=== PATIENT | female | born 1980 | race Caucasian/White ===

== ENCOUNTER 2016-05-29 18:50 | Emergency (ER) | payer BC ==
[~2016-05-29] VITALS: Ht 162.6 cm; Wt 72.6 kg
[2016-05-29 19:04] VITALS: BP 147/104
--- NOTE | 2016-05-29 20:57 | NUR ---
PATIENT AMBULATED TO BED 1.
--- NOTE | 2016-05-29 20:58 | NUR ---
36Y F BIB FAMILY, SISTER AT BEDSIDE C/O L EYE PAIN X 1 WEEK, NO SWELLING OR DISCHARGE AT THE MOMENT. PT STATES THIS HAPPENED BEFORE IN THE SUMMER AND WAS DX AT [place] AN ULCER IN THE L EYE .PT DENIES N/V/D; SKIN IS PINK/WARM/DRY; AAOX4 WITH EVEN AND STEADY GAIT; LUNGS CLEAR BL; HR EVEN AND REGULAR; PT DENIES ANY FEVER, CP, SOB, OR COUGH AT THIS TIME; PATIENT STATES PAIN OF 10/10 AT THIS TIME; VSS; PATIENT POSITIONED FOR COMFORT; HOB ELEVATED; BEDRAILS UP X2; BED DOWN. ER MD MADE AWARE OF PT STATUS.
--- NOTE | 2016-05-29 22:24 | NUR ---
Patient being evaluated by physician DR QUINTANILLA at bedside.
[2016-05-29] MEDS ORDERED: KETOROLAC 60 MG/2 ML VIAL IM ONE (22:30)
[2016-05-29] MEDS ORDERED: FLUORESCEIN OPTH STRIP 1 MG OP ONE (22:30)
--- NOTE | 2016-05-29 22:57 | NUR ---
Patient discharged with v/s stable. Written and verbal after care instructions given and explained. Patient alert, oriented and verbalized understanding of instructions. Ambulatory with steady gait. All questions addressed prior to discharge. ID band removed. Patient advised to follow up with PMD. Rx of ERYTHROMYCIN 0.5%, MOTRIN 800MG, AND NORCO 5/325MG given. Patient educated on indication of medication including possible reaction and side effects. Opportunity to ask questions provided and answered.
[2016-05-29 22:58] VITALS: BP 132/84
== END 2016-05-29 22:57 | disposition home or self-care (01) ==
LOC: MED 18:50
DX: H10.89 Other conjunctivitis (principal)
CPT/HCPCS: 96372; 99283; J1885